=== PATIENT | female | born 1985 | race Two or more races ===

== ENCOUNTER 2016-06-07 12:47 | Emergency (ER) | payer OTHER ==
[2016-06-07 13:07] VITALS: TEMP 98.3; BMI 30.9
--- NOTE | 2016-06-07 13:27 | PDOC ---
History of Present Illness - General History Source: Patient Exam Limitations: No Limitations - History of Present Illness Initial Comments: 06/07/16 14:05 The patient is a 30 year old female, with no significant past medical history, who presents to the emergency department complaining of epigastric pain for approximately 4 days. The patient reports associated nausea, diarrhea, and chills. She states she her appetite is normal, but has not been eating much, because she is worried about her abdominal pain. The patient reports the pain is exacerbated when eating. She reports her pain is intermittent. She reports some occasional right flank pain. The patient denies any dysuria, hematuria, frequency, or urgency. The patient denies any vomiting or constipation. The patient denies any fever, cough, headache, or dizziness. The patient denies any recent travel or sick contacts. Allergies: Lactose. NKDA Past Surgical History: None reported. Social History: Non-smoker. Denies alcohol or drug use. PCP: Dr. Blair <Alexandro Vera - Last Filed: 06/07/16 14:05> <Anita Almodovar - Last Filed: 06/08/16 08:52> - General Chief Complaint: Pain, Acute Stated Complaint: ABD PAIN, DIARRHEA, CHILLS Time Seen by Provider: 06/07/16 13:26 Past History <Alexandro Vera - Last Filed: 06/07/16 14:05> - Past Medical History Asthma: Yes - Psycho/Social/Smoking Cessation Hx Anxiety: No Suicidal Ideation: No Smoking History: Never smoked Have you smoked in the past 12 months: No Information on smoking cessation initiated: No Hx Alcohol Use: No Drug/Substance Use Hx: No Substance Use Type: None <Anita Almodovar - Last Filed: 06/08/16 08:52> - Past Medical History Allergies/Adverse Reactions: Allergies Allergy/AdvReac Type Severity Reaction Status Date / Time No Known Allergies Allergy Verified 06/07/16 13:04 Home Medications: Ambulatory Orders Pantoprazole Sodium [Protonix] 40 mg PO DAILY #30 tablet. 06/07/16 Ranitidine HCl [Zantac] 150 mg PO BID PRN #20 tablet 06/07/16 Review of Systems - Review of Systems Able to Perform ROS?: Yes Comments:: 06/07/16 14:05 GENERAL/CONSTITUTIONAL: +Chills. No fever. No weakness. HEAD, EYES, EARS, NOSE AND THROAT: No change in vision. No ear pain or discharge. No sore throat. CARDIOVASCULAR: No chest pain or shortness of breath. RESPIRATORY: No cough, wheezing, or hemoptysis. GASTROINTESTINAL: +Epigastric pain, +nausea, +diarrhea. No vomiting or constipation. GENITOURINARY: No dysuria, frequency, or change in urination. MUSCULOSKELETAL: No joint or muscle swelling or pain. No neck or back pain. SKIN: No rash NEUROLOGIC: No headache, vertigo, loss of consciousness, or change in strength/ sensation. ENDOCRINE: No increased thirst. No abnormal weight change. HEMATOLOGIC/LYMPHATIC: No anemia, easy bleeding, or history of blood clots. ALLERGIC/IMMUNOLOGIC: No hives or skin allergy. <Alexandro Vera - Last Filed: 06/07/16 14:05> *Physical Exam - Vital Signs Last Vital Signs Temp Pulse Resp BP Pulse Ox 98.3 F 64 18 116/75 100 06/07/16 13:04 06/07/16 13:04 06/07/16 13:04 06/07/16 13:04 06/07/16 13:04 - Physical Exam Comments: 06/07/16 14:06 GENERAL: Awake, alert, and fully oriented, in no acute distress HEAD: No signs of trauma EYES: PERRLA, EOMI, sclera anicteric, conjunctiva clear ENT: Auricles normal inspection, hearing grossly normal, nares patent, oropharynx clear without exudates. Dry mucosa NECK: Normal ROM, supple, no lymphadenopathy, JVD, or masses LUNGS: Breath sounds equal, clear to auscultation bilaterally. No wheezes, and no crackles HEART: Regular rate and rhythm, normal S1 and S2, no murmurs, rubs or gallops ABDOMEN: Tenderness to palpation to the epigastric region. Soft, normoactive bowel sounds. No guarding, no rebound. No masses EXTREMITIES: Normal range of motion, no edema. No clubbing or cyanosis. No cords, erythema, or tenderness NEUROLOGICAL: Cranial nerves II through XII grossly intact. Normal speech, normal gait SKIN: Warm, Dry, normal turgor, no rashes or lesions noted. <Alexandro Vera - Last Filed: 06/07/16 14:05> - Vital Signs Last Vital Signs Temp Pulse Resp BP Pulse Ox 98.3 F 64 18 116/75 100 06/07/16 13:04 06/07/16 13:04 06/07/16 13:04 06/07/16 13:04 06/07/16 13:04 <Anita Almodovar - Last Filed: 06/08/16 08:52> ED Treatment Course - LABORATORY CBC & Chemistry Diagram: 06/07/16 13:45 06/07/16 13:45 <Alexandro Vera - Last Filed: 06/07/16 14:05> - LABORATORY CBC & Chemistry Diagram: 06/07/16 13:45 06/07/16 13:45 <Anita Almodovar - Last Filed: 06/08/16 08:52> Medical Decision Making - Medical Decision Making 06/07/16 16:[address] Hudson. Awaiting CT a/p for further evaluation of abd pain, diarrhea, poor PO intake. If negative, will recommend outpatient GI f/u. <Anita Almodovar - Last Filed: 06/08/16 08:52> *DC/Admit/Observation/Transfer - Attestations Scribe Attestion: 06/07/16 14:07 Documentation prepared by Alexandro Vera, acting as medical manager for Anita Almodovar MD. <Alexandro Vera - Last Filed: 06/07/16 14:05> <Anita Almodovar - Last Filed: 06/08/16 08:52> Diagnosis at time of Disposition: Gastritis Qualifiers: Gastritis type: unspecified gastritis Chronicity: acute Gastritis bleeding: without bleeding Qualified Code(s): K29.00 - Acute gastritis without bleeding - Discharge Dispostion Disposition: HOME Condition at time of disposition: Stable - Prescriptions Prescriptions: Pantoprazole Sodium [Protonix] 40 mg PO DAILY #30 tablet. Ranitidine HCl [Zantac] 150 mg PO BID PRN #20 tablet PRN Reason: Abdominal Pain - Referrals Referrals: Kash Worrell DO [Staff Physician] - Cyndie Mccullough MD [Primary Care Provider] - - Patient Instructions Printed Discharge Instructions: [place] Diet, DI for Gastritis Additional Instructions: Your CT scan of the abdomen and pelvis reviewed. No acute findings. It may be possible that this may be gastritis. Please try a bland diet. Take 40 mg protonix daily. For additional relief, take 150 mg zantac every 12 hours as needed. Follow up with a GI doctor. Call to schedule an appointment. - Post Discharge Activity Work/School Note: Back to Work
[2016-06-07] MEDS ORDERED: SODIUM CHLORIDE 1,000 ML IV STA (13:58)
[2016-06-07 14:02] LABS: BASOPHIL 0.5 % (0-2.0); EOSINOPHIL 2.4 % (0-4.5); MCH 27.3 pg (25.7-33.7); MCHC 32.6 g/dl (32.0-36.0); MEAN CELL VOLUME 83.7 fl (80-96); NEUTROPHILS 53.8 % (42.8-82.8); PLATELET COUNT 229 K/MM3 (134-434); RDW 14.4 % (11.6-15.6); WHITE BLOOD COUNT 6.7 K/mm3 (4.0-10.0)
[2016-06-07 14:29] LABS: ALBUMIN 3.9 g/dl (3.4-5.0); ANION GAP 6 (8-16); CALCIUM 8.7 mg/dL (8.5-10.1); CO2 28 mmol/L (21-32); GLUCOSE,RANDOM 87 mg/dL (74-106)
[2016-06-07 14:32] LABS: ALK PHOS 65 U/L (45-117); BILIRUBIN,TOTAL 0.7 mg/dL (0.2-1.0); CREATININE 0.8 mg/dL (0.55-1.02); SGOT/AST 15 U/L (15-37); SGPT/ALT 20 U/L (12-78); TOT PROT 7.2 g/dl (6.4-8.2)
[2016-06-07] MEDS ORDERED: PANTOPRAZOLE 40 MG TABLET (FP) PO ONE (17:30)
[2016-06-07] MEDS ORDERED: RANITIDINE HCL 150 MG TABLET (FP) PO ONE (17:30)
--- NOTE | 2016-06-07 17:35 | PDOC ---
*Physical Exam - Vital Signs Last Vital Signs Temp Pulse Resp BP Pulse Ox 98.3 F 64 18 116/75 100 06/07/16 13:04 06/07/16 13:04 06/07/16 13:04 06/07/16 13:04 06/07/16 13:04 ED Treatment Course - LABORATORY CBC & Chemistry Diagram: 06/07/16 13:45 06/07/16 13:45 - ADDITIONAL ORDERS Additional order review: Laboratory Results 06/07/16 06/07/16 13:45 13:45 Sodium 141 Potassium 4.2 Chloride 107 Carbon Dioxide 28 Anion Gap 6 L BUN 11 Creatinine 0.8 Creat Clearance w eGFR > 60 Random Glucose 87 Calcium 8.7 Total Bilirubin 0.7 AST 15 ALT 20 Alkaline Phosphatase 65 Total Protein 7.2 Albumin 3.9 Lipase 193 Serum , Qual Negative 06/07/16 13:45 RBC 4.66 MCV 83.7 MCHC 32.6 RDW 14.4 MPV 8.0 Neutrophils % 53.8 Lymphocytes % 32.3 Monocytes % 11.0 H Eosinophils % 2.4 Basophils % 0.5 - Medications Given in the ED: ED Medications Discontinued Medications Generic Name Dose Route Start Last Admin Trade Name Freq PRN Reason Stop Dose Admin Sodium Chloride 1,000 mls @ 1,000 mls/hr 06/07/16 13:58 06/07/16 14:12 Normal Saline - IV 06/07/16 14:57 1,000 mls/hr ASDIR STA Administration Medical Decision Making - Medical Decision Making 06/07/16 17:31 Sign-out received from outgoing Emergency Physician Dr. Almodovar Pt interviewed and examined Ancillary studies reviewed Case discussed in detail with oncoming Emergency Physician including history, physical exam and ancillary studies. Vital Signs Temp Pulse Resp BP Pulse Ox 98.3 F 64 18 116/75 100 06/07/16 13:04 06/07/16 13:04 06/07/16 13:04 06/07/16 13:04 06/07/16 13:04 CBC, BMP 06/07/16 13:45 06/07/16 13:45 CMP Sodium 141 mmol/L (136-145) 06/07/16 13:45 Potassium 4.2 mmol/L (3.5-5.1) 06/07/16 13:45 Chloride 107 mmol/L (98-107) 06/07/16 13:45 Carbon Dioxide 28 mmol/L (21-32) 06/07/16 13:45 Anion Gap 6 (8-16) L 06/07/16 13:45 BUN 11 mg/dL (7-18) 06/07/16 13:45 Creatinine 0.8 mg/dL (0.55-1.02) 06/07/16 13:45 Creat Clearance w eGFR > 60 (>60) 06/07/16 13:45 Random Glucose 87 mg/dL (74-106) 06/07/16 13:45 Calcium 8.7 mg/dL (8.5-10.1) 06/07/16 13:45 Total Bilirubin 0.7 mg/dL (0.2-1.0) 06/07/16 13:45 AST 15 U/L (15-37) 06/07/16 13:45 ALT 20 U/L (12-78) 06/07/16 13:45 Alkaline Phosphatase 65 U/L (45-117) 06/07/16 13:45 Total Protein 7.2 g/dl (6.4-8.2) 06/07/16 13:45 Albumin 3.9 g/dl (3.4-5.0) 06/07/16 13:45 Lipase 193 U/L (73-393) 06/07/16 13:45 Serum , Qual Negative 06/07/16 13:45 CT scan reviewed. No acute findings. Patient describes to me of this twisting epigastric pain after eating. It sounds like gastritis or potentially gastric ulcer. We will prescribe her tonics and Zantac and have the patient follow up with gastrology. I'll treat as gastritis at this time. I discussed the physical exam findings, ancillary test results and final diagnoses with the patient. I answered all of the patient's questions. The patient was satisfied with the care received and felt comfortable with the discharge plan and treatment plan. The patient will call their primary care physician within 24 hours to arrange follow-up and will return to the Emergency Department with any new, persistant or worsening symptoms. *DC/Admit/Observation/Transfer Diagnosis at time of Disposition: Gastritis Qualifiers: Gastritis type: unspecified gastritis Chronicity: acute Gastritis bleeding: without bleeding Qualified Code(s): K29.00 - Acute gastritis without bleeding - Discharge Dispostion Disposition: HOME Condition at time of disposition: Stable Admit: No - Prescriptions Prescriptions: Pantoprazole Sodium [Protonix] 40 mg PO DAILY #30 tablet. Ranitidine HCl [Zantac] 150 mg PO BID PRN #20 tablet PRN Reason: Abdominal Pain - Referrals Referrals: Cyndie Mccullough MD [Primary Care Provider] - Kash Worrell DO [Staff Physician] - - Patient Instructions Printed Discharge Instructions: DI for Gastritis, [place] Diet Additional Instructions: Your CT scan of the abdomen and pelvis reviewed. No acute findings. It may be possible that this may be gastritis. Please try a bland diet. Take 40 mg protonix daily. For additional relief, take 150 mg zantac every 12 hours as needed. Follow up with a GI doctor. Call to schedule an appointment. - Post Discharge Activity
[2016-06-07] MEDS ORDERED: RANITIDINE HCL 150 MG TABLET (FP) ONE (17:50)
[2016-06-07] MEDS ORDERED: PANTOPRAZOLE 40 MG TABLET (FP) ONE (17:50)
[2016-06-07 17:57] VITALS: BP 121/74; PULSE 74
== END 2016-06-07 17:56 | disposition home or self-care (01) ==
LOC: JER 12:47
PROC: 3E0337Z Introduction of Electrolytic and Water Balance Substance into Peripheral Vein, Percutaneous Approach (ICD-10-PCS; principal; 2016-06-07)
DX: K29.00 Acute gastritis without bleeding (principal)
CPT/HCPCS: 36415; 74177-TC; 80053; 83690; 84703; 85025; 96360; 99283-25

== ENCOUNTER 2016-10-02 11:17 | Inpatient (IN) | payer OTHER ==
[2016-10-02] MEDS ORDERED: METOCLOPRAMIDE HCL INJECTION 10 MG/2 ML VIAL IVPB ONE (12:15)
[2016-10-02 12:22] LABS: BASOPHIL 0.7 % (0-2.0); EOSINOPHIL 2.2 % (0-4.5); MCH 27.2 pg (25.7-33.7); MCHC 32.6 g/dl (32.0-36.0); MEAN CELL VOLUME 83.5 fl (80-96); MEAN PLT VOLUME 8.7 fl (7.5-11.1); NEUTROPHILS 56.3 % (42.8-82.8); PLATELET COUNT 235 K/MM3 (134-434); RDW 14.4 % (11.6-15.6); WHITE BLOOD COUNT 7.1 K/mm3 (4.0-10.0)
--- NOTE | 2016-10-02 12:30 | PDOC ---
History of Present Illness - General Chief Complaint: Diarrhea Stated Complaint: DEHYDRATED Time Seen by Provider: 10/02/16 11:48 History Source: Patient - History of Present Illness Timing/Duration: reports: getting worse Abdominal Pain Onset Location: reports: epigastric Past History - Past Medical History Allergies/Adverse Reactions: Allergies Allergy/AdvReac Type Severity Reaction Status Date / Time No Known Allergies Allergy Verified 10/02/16 11:26 Home Medications: Ambulatory Orders NK [No Known Home Medication] 10/02/16 Asthma: Yes - Psycho/Social/Smoking Cessation Hx Anxiety: No Suicidal Ideation: No Smoking History: Never smoked Have you smoked in the past 12 months: No Hx Alcohol Use: No Drug/Substance Use Hx: No Substance Use Type: None Review of Systems - Review of Systems Constitutional: Yes: Malaise, Weakness. No: Chills, Fever ABD/GI: Yes: Diarrhea, Nausea, Vomiting, Abdominal cramping : No: Dysuria Neurological: Yes: Weakness, Dizziness *Physical Exam - Vital Signs Last Vital Signs Temp Pulse Resp BP Pulse Ox 98.0 F 64 20 119/71 99 10/02/16 11:23 10/02/16 11:23 10/02/16 11:23 10/02/16 11:23 10/02/16 11:23 - Physical Exam Comments: 10/02/16 12:29 appears lethargic General Appearance: Yes: Appropriately Dressed HEENT: positive: Normal Voice Neck: positive: Supple Respiratory/Chest: negative: Respiratory Distress Gastrointestinal/Abdominal: positive: Normal Bowel Sounds, Soft. negative: Tender, Distended, Guarding, Rebound Neurologic: positive: Normal Mood/Affect. negative: Fully Oriented ED Treatment Course - LABORATORY CBC & Chemistry Diagram: 10/02/16 12:11 10/02/16 13:00 Medical Decision Making - Medical Decision Making 10/02/16 12:26 31-year-old female, no significant history here with nausea, vomiting and diarrhea. Patient states approximately 2 weeks ago she developed epigastric pain mostly after eating. At some point developed nausea, no vomiting and states she's had multiple episodes of non-bloody watery diarrhea daily. Denies any fever or chills. Yesterday developed dizziness and headache with profound weakness. Reports that multiple family members at home had similar symptoms and have since improved. No recent travel, antibiotic use or unusual food See exam N/V/D x 2 weeks w/ profound weakness now +sick contacts Appears lethargic in ED but stable Abd benign Possibly viral -IVF -reglan -labs -stool studies at this point given duration of sxs -reasess 10/02/16 12:29 10/02/16 13:50 Lab called, K 1.9, Glu 44, calcium too low to run, will rpt. Pt remains stable. Amp D50, IV KCL and ekg in progress. 10/02/16 15:26 10/02/16 15:27 Sinus torin to 46 on EKG. Will contact hospitalist and admit at this time 10/02/16 17:46 Pt admitted to non-cardiac tele w/ rpt labs pending s/p meds. Pt appears sig better at this time *DC/Admit/Observation/Transfer Diagnosis at time of Disposition: Vomiting and diarrhea - Discharge Dispostion Condition at time of disposition: Fair Admit: Yes
[2016-10-02] MEDS ORDERED: METOCLOPRAMIDE HCL INJECTION 10 MG/2 ML VIAL ONE (12:31)
[2016-10-02 13:47] LABS: ALBUMIN 1.7 g/dl (3.4-5.0); ALK PHOS 32 U/L (45-117); ANION GAP 10 (8-16); BILIRUBIN,TOTAL 0.2 mg/dL (0.2-1.0); CO2 13 mmol/L (21-32); CREATININE 0.2 mg/dL (0.55-1.02); SGOT/AST 12 U/L (15-37); SGPT/ALT 16 U/L (12-78)
[2016-10-02 13:49] LABS: GLUCOSE,RANDOM 44 mg/dL (74-106)
[2016-10-02] MEDS ORDERED: DEXTROSE 50%-WATER - 25 GM/50 ML VIAL IVPUSH ONE (13:50)
[2016-10-02] MEDS ORDERED: KCL 10 MEQ IVPB 100 ML IVPB SCH (14:00)
[2016-10-02] MEDS ORDERED: DEXTROSE 50%-WATER 50 ML DISP.SYRIN ONE (14:24)
[2016-10-02] MEDS ORDERED: KCL 10 MEQ IVPB 200 ML IVPB ONE (14:24)
[2016-10-02] MEDS ORDERED: DEXTROSE 5%-0.45% SALINE 1,000 ML IV SCH ×2 (14:45→20:00)
[2016-10-02] MEDS ORDERED: CALCIUM GLUCONATE 10% - 1,000 MG/10 ML VIAL IVPUSH STA (15:44)
[2016-10-02] MEDS: KCL 10 MEQ IVPB 100 ML IVPB SCH ×3 (16:07→20:32)
[2016-10-02] MEDS ORDERED: MAGNESIUM SULF 50% (8.12 MEQ/2 ML-1 GM VIAL) IVPB ONE (16:17)
[2016-10-02] MEDS ORDERED: MAGNESIUM SULF 50% (8.12 MEQ/2 ML-1 GM VIAL) ONE (16:19)
[2016-10-02] MEDS ORDERED: CALCIUM GLUCONATE 10% - 1,000 MG/10 ML VIAL ONE (16:19)
[2016-10-02] MEDS ORDERED: ACETAMINOPHEN 325 MG TABLET (FP) PO PRN (16:23)
[2016-10-02] MEDS ORDERED: ONDANSETRON *ODT* 4 MG TABLET SL PRN (16:25)
--- NOTE | 2016-10-02 17:02 | PN ---
Teaching Attending Note Name of Resident: Teddy Lewis ATTENDING PHYSICIAN STATEMENT I saw and evaluated the patient. I reviewed the resident's note and discussed the case with the resident. I agree with the resident's findings and plan as documented. SUBJECTIVE:31yo F with no PMH presented to the ER c/o N/V/D [id number]. started suddenly assoc with epigastric pain. other family members had the same symptoms but those resolved after 5 days. her vomiting has resolved but continues to feel nausea with intermittent epigastric non-radiating pain and diarrhea. (7x/ day light brown stools). no similar episodes in the past. denies use of diuretics, laxatives, weight loss supplements, illicit drugs, psychiatric drugs. no recent travel. denies seizure, muscle spasm, lethargy, weight gain, hair loss, polyuria or red urine. +subjective weight loss OBJECTIVE: Last Vital Signs Temp Pulse Resp BP Pulse Ox 97.7 F 55 L 18 101/60 100 10/02/16 14:30 10/02/16 14:30 10/02/16 14:30 10/02/16 14:30 10/02/16 14:30 General NAD CV S1 S2 RRR no murmur/rub/gallop Lungs CTA B/L no wheezing/rales/rhonchi Abdomen soft NT/ND no rebound or guarding. negative rowe sign. normoactive BS Extremities no pedal edema ASSESSMENT AND PLAN: 31yo F with no PMH presented to the ER with intractable diarrhea 1. Severe hypokalemia-Tele admission for continuous cardiac monitoring. check TSH, urinary potassium. receiving KCl 10meq on 2nd run. will give additional 2 bags and Mg 2g despite level not known at this time. check labs after completed 4 bags. EKG QTc 406 2. Severe hypocalcemia- unreadable on admitting labs. will give calcium gluconate x1. requested RN to set up 2nd IV site to run calcium infusion. will wait for repeat labs. then run calcium gluconate 11g at 50mL/H if Ca <7.5 3. Hypoglcyemia- due to GI losses. s/p D50. repeat sugar. 4. Gastroenteritis-pt states she never had symptoms in the past but was here in 06/2016 with same complaints. electrolytes were normal at that time. CT at that time was negative for pathology. likely viral vs induced? (laxative/diuretic abuse as pt has such electrolyte disturbances). CT abdomen at that time was negative for pathology. check cdiff and stool studies. if cdiff negative can give loperamide. advance diet as tolerated 5. HYpernatremia- likely dehydration. IVF 6. DVT ppx- EAM
--- NOTE | 2016-10-02 17:29 | HP ---
CHIEF COMPLAINT: I have diarrhea and vomiting PCP: Dr. Blair HISTORY OF PRESENT ILLNESS: 31 yo F with h/o lactose intolerance and suspected gastritis presented to the ED worsening nausea, vomiting and diarrhea for 2 weeks. Patient accounts that these symptoms came on 2 weeks ago without any triggering events that she can think of. On 06/07, she was seen in [facility] ED for similar symptoms and was discharged home in light of negative abd CT. What's different between then and now is the acuity, severity and duration. She's now having on average 2 episodes of vomiting with clear fluid or gastric content and 6 times of water diarrhea. Patient suspects it's somehow related to stomach pain whenever she eats. The pain is epigastric, stabbing like, 10/10, non-radiating, triggered by eating. Patient also stated that she used to have days of constipation followed by days of diarrhea. She never had endoscopy or endoscopy. Denies travel, sick contact, genetic disorder, change in diet, mood or psychiatric disorder, new medication, fever, chills, chest pain, shortness of breath on exertion, or urinary symptom. ER course was notable for: (1) Na+ 152, K+ 1.9 Glu 44 (2) Received 3 runs of IV KCl, D50, Mg2+, Reglan, Ca gluconate (3) Clinically stable Recent Travel: Denies PAST MEDICAL HISTORY: Asthma, lactose intolerant, gastritis (not officially diagnosed) PAST SURGICAL HISTORY: in 2008, 2009, 2011 Social History: Smoking: Denies Alcohol: Denies Drugs: Smokes marijuana every night Family History: Adopted. Biological father has gastric ulcer and ?kidney problem, mother health status unknown Allergies No Known Allergies Allergy (Verified 10/02/16 11:26) HOME MEDICATIONS: Home Medications Medication Instructions Recorded NK [No Known Home Medication] 10/02/16 REVIEW OF SYSTEMS CONSTITUTIONAL: generalized weakness, Absent: fever, chills, diaphoresis, malaise, loss of appetite, weight change HEENT: Absent: rhinorrhea, nasal congestion, throat pain, throat swelling, difficulty swallowing, mouth swelling, ear pain, eye pain, visual changes CARDIOVASCULAR: lightheadedness Absent: chest pain, syncope, palpitations, irregular heart rate, , peripheral edema RESPIRATORY: Absent: cough, shortness of breath, dyspnea with exertion, orthopnea, wheezing, stridor, hemoptysis GASTROINTESTINAL:nausea, vomiting, diarrhea Absent: abdominal pain, abdominal distension, constipation, melena, hematochezia GENITOURINARY: Absent: dysuria, frequency, urgency, hesitancy, hematuria, flank pain, genital pain MUSCULOSKELETAL: Absent: myalgia, arthralgia, joint swelling, back pain, neck pain SKIN: Absent: rash, itching, pallor HEMATOLOGIC/IMMUNOLOGIC: Absent: easy bleeding, easy bruising, lymphadenopathy, frequent infections ENDOCRINE: Absent: unexplained weight gain, unexplained weight loss, heat intolerance, cold intolerance NEUROLOGIC: Absent: headache, focal weakness or paresthesias, dizziness, unsteady gait, seizure, mental status changes, bladder or bowel incontinence PSYCHIATRIC: Absent: anxiety, depression, suicidal or homicidal ideation, hallucinations. PHYSICAL EXAMINATION Last Vital Signs Temp Pulse Resp BP Pulse Ox 97.7 F 55 L 18 101/60 100 10/02/16 14:30 10/02/16 14:30 10/02/16 14:30 10/02/16 14:30 10/02/16 14:30 GENERAL: AAO x 3, in no acute distress. HEAD: Normal with no signs of trauma. EYES: Pupils equal, round and reactive to light, extraocular movements intact, sclera anicteric, conjunctiva clear . EARS, NOSE, THROAT: oropharynx clear without exudates. Moist mucous membranes. LUNGS: CTAB HEART: RRR, normal S1 and S2 without murmur, rub or gallop. ABDOMEN: Soft, nontender, not distended, normoactive bowel sounds, no guarding, no rebound, no masses. EXTREMITIES: 2+ pulses, warm, No calf tenderness. No peripheral edema. NEUROLOGICAL: Cranial nerves II-XII intact. Normal speech. Normal gait. PSYCHIATRIC: Cooperative. Good eye contact. Appropriate mood and affect. SKIN: Warm, dry, normal turgor, no rashes or lesions noted, normal capillary refill. CBCD WBC 7.1 K/mm3 (4.0-10.0) 10/02/16 12:11 RBC 4.84 M/mm3 (3.60-5.2) 10/02/16 12:11 Hgb 13.2 GM/dL (10.7-15.3) 10/02/16 12:11 Hct 40.4 % (32.4-45.2) 10/02/16 12:11 MCV 83.5 fl (80-96) 10/02/16 12:11 MCHC 32.6 g/dl (32.0-36.0) 10/02/16 12:11 RDW 14.4 % (11.6-15.6) 10/02/16 12:11 Plt Count 235 K/MM3 (134-434) 10/02/16 12:11 MPV 8.7 fl (7.5-11.1) 10/02/16 12:11 CMP Sodium 152 mmol/L (136-145) H 10/02/16 13:00 Potassium 1.9 mmol/L (3.5-5.1) L* D 10/02/16 13:00 Chloride 129 mmol/L (98-107) H D 10/02/16 13:00 Carbon Dioxide 13 mmol/L (21-32) L D 10/02/16 13:00 Anion Gap 10 (8-16) 10/02/16 13:00 BUN 7 mg/dL (7-18) D 10/02/16 13:00 Creatinine 0.2 mg/dL (0.55-1.02) L D 10/02/16 13:00 Creat Clearance w eGFR > 60 (>60) 10/02/16 13:00 Calcium Y 10/02/16 13:00 Total Bilirubin 0.2 mg/dL (0.2-1.0) D 10/02/16 13:00 AST 12 U/L (15-37) L 10/02/16 13:00 ALT 16 U/L (12-78) 10/02/16 13:00 Alkaline Phosphatase 32 U/L (45-117) L D 10/02/16 13:00 Total Protein 3.0 g/dl (6.4-8.2) L D 10/02/16 13:00 Albumin 1.7 g/dl (3.4-5.0) L D 10/02/16 13:00 IMAGING EKG on 10/02: peak T waves, prolonged QT (my read) CT abd on 06/07: No acute finding ASSESSMENT/PLAN: 31 yo F with h/o lactose intolerance and suspected gastritis presented to the ED worsening nausea, vomiting and diarrhea for 2 weeks. She's admitted to observation for electrolyte derangement. Intractable nausea, vomiting and diarrhea - Cont. D5W + 1/2NS - Reglan PRN for n/v - f/u c. diff ag - Liquid diet Hypocalcemia - Unknown etiology - Negative trousseau and chevostek signs - f/u PTH, phosphate, Mg2+ level - Received Ca gluconate and MgSO4 - Seizure precaution and neuro checks Gastritis - On protonix - H. pylori and EGD as outpatient Hypovolemic Hypernatremia - 2/2 diarrhea - Cont. D5W + 1/2NS Hypokalemia - With non-anion gap metabolic acidosis - 2/2 diarrhea - IV KCl x 3 bags + PO KCl - Recheck level Hypoglycemia - Likely 2/2 poor PO intake - Advance diet as tolerated FEN - Cont. IVF - Monitor electrolytes - Liquid diet Prophylaxis - DVT: SCDs - GI: protonix Dispo - Cont. to observe on med-surg Visit type - Emergency Visit Emergency Visit: Yes ED Registration Date: 10/02/16 Care time: The patient presented to the Emergency Department on the above date and was hospitalized for further evaluation of their emergent condition. - New Patient This patient is new to me today: Yes Date on this admission: 10/02/16 - Critical Care Critical Care patient: No
[2016-10-02] MEDS ORDERED: METOCLOPRAMIDE HCL INJECTION 10 MG/2 ML VIAL IVPB PRN (18:00)
[2016-10-02] MEDS ORDERED: POTASSIUM CHLORIDE TABS 20 MEQ TABLET.ER (FP) PO ONE (18:03)
[2016-10-02] MEDS ORDERED: KCL 10 MEQ IVPB 100 ML IVPB ONE ×2 (18:07→20:30)
[2016-10-02 18:48] LABS: URINE APPEARANCE CLEAR; URINE BILIRUBIN NEGATIVE (NEGATIVE); URINE COLOR LTYELLOW; URINE GLUCOSE (UA) 2+ (NEGATIVE); URINE KETONE 1+ (NEGATIVE); URINE LEUK ESTERASE NEGATIVE (NEGATIVE); URINE NITRITE NEGATIVE (NEGATIVE); URINE PROTEIN NEGATIVE (NEGATIVE); URINE UROBILINOGEN NEGATIVE E.U./dl (0.2-1.0)
[2016-10-02 19:09] LABS: URINE BLOOD 2+ (NEGATIVE)
[2016-10-02 20:01] LABS: URINE BACTERIA RARE /hpf (NONE SEEN); URINE MUCUS FEW; URINE RBC <1 /hpf (0-3); URINE WBC 2 /hpf (3-5)
[2016-10-02] MEDS ORDERED: SODIUM CHLORIDE 0.45% 1,000 ML IV SCH (20:15)
[2016-10-02 20:16] VITALS: BMI 29.7
[2016-10-02 23:05] LABS: ALBUMIN 3.3 g/dl (3.4-5.0); ALK PHOS 64 U/L (45-117); ANION GAP 8 (8-16); BILIRUBIN,TOTAL 0.4 mg/dL (0.2-1.0); CALCIUM 8.1 mg/dL (8.5-10.1); CO2 23 mmol/L (21-32); CREATININE 0.6 mg/dL (0.55-1.02); GLUCOSE,RANDOM 81 mg/dL (74-106); SGOT/AST 22 U/L (15-37); SGPT/ALT 29 U/L (12-78); TOT PROT 6.3 g/dl (6.4-8.2)
[2016-10-03 02:28] LABS: URINE MARIJUANA THC NEGATIVE ng/ml (CUTOFF=50)
[2016-10-03] MEDS ORDERED: SODIUM CHLORIDE 1,000 ML IV SCH (05:00)
[2016-10-03 05:41] VITALS: TEMP 97.8
[2016-10-03 07:11] LABS: THYROID STIMULATING HORMONE 1.19 uIU/ml (0.358-3.74)
[2016-10-03 09:16] LABS: ALBUMIN 3.2 g/dl (3.4-5.0); ANION GAP 9 (8-16); CO2 21 mmol/L (21-32); CREATININE 0.7 mg/dL (0.55-1.02); GLUCOSE,RANDOM 82 mg/dL (74-106); MAGNESIUM 1.9 mg/dL (1.8-2.4); PHOSPHOROUS 2.6 mg/dL (2.5-4.9); SGOT/AST 23 U/L (15-37); SGPT/ALT 28 U/L (12-78)
[2016-10-03 09:17] LABS: ALK PHOS 63 U/L (45-117); BILIRUBIN,TOTAL 0.5 mg/dL (0.2-1.0)
[2016-10-03] MEDS ORDERED: PANTOPRAZOLE 40 MG TABLET (FP) PO SCH (10:00)
[2016-10-03 10:32] VITALS: BP 107/65; PULSE 66
--- NOTE | 2016-10-03 11:11 | EKG ---
Test Reason : Blood Pressure : / mmHG Vent. Rate : 046 BPM Atrial Rate : 046 BPM P-R Int : 156 ms QRS Dur : 094 ms QT Int : 464 ms P-R-T Axes : 000 062 046 degrees QTc Int : 406 ms SINUS BRADYCARDIA WITH SINUS ARRHYTHMIA OTHERWISE NORMAL ECG NO PREVIOUS ECGS AVAILABLE Confirmed by MARINO ZULUAGA MD ([id number]) on 10/03/2016 11:11:03 AM Referred By: Confirmed By:MARINO ZULUAGA MD
--- NOTE | 2016-10-03 14:56 | PN ---
Teaching Attending Note Name of Resident: Teddy Lewis ATTENDING PHYSICIAN STATEMENT I saw and evaluated the patient. I reviewed the resident's note and discussed the case with the resident. I agree with the resident's findings and plan as documented. SUBJECTIVE:abdominal pain has resolved. had 2 loose BM since yesterday. tolerating regular diet. denies CP, SOB,fever, chills, N/V/C OBJECTIVE: Last Vital Signs Temp Pulse Resp BP Pulse Ox 97.8 F 66 18 107/65 100 10/03/16 10:10/03/16 10:00 10/03/16 10:00 10/03/16 10:10/03/16 10:00 General NAD Abdomen soft NT/ND no rebound or guarding. negative rowe sign. normoactive BS ASSESSMENT AND PLAN: 31yo F with no PMH presented to the ER with intractable diarrhea 1. Severe hypokalemia-received Kcl 10meq x4. repeat lab is normalized. likely initial labs was lab error. 2. Severe hypocalcemia- initial reading likely lab error. WNL. 3. Hypoglcyemia- resolved. 4. Gastroenteritis- resolved. tolerating regular diet. cdiff negative. diarrhea resolved. CT on last admission was normal. instructed to f/u with GI if symptoms re-occur. 5. HYpernatremia- resolved 6. DVT ppx- EAM 7. d/c home
--- NOTE | 2016-10-03 16:10 | DS ---
Physical Exam: SUBJECTIVE: Patient had an uneventful night. No more n/v. Had 3 diarrhea since admission. Tolerating food. No fever, chills, chest pain, sob, abd pain, urinary symptom. OBJECTIVE: Vital Signs Period Temp Pulse Resp BP Sys/Haynes Pulse Ox Last 24 Hr 97.8 F-98.5 F 44-66 16-18 92-111/58-78 100-100 PHYSICAL EXAM GENERAL: AAO x 3, in no acute distress. HEAD: Normal with no signs of trauma. EYES: Pupils equal, round and reactive to light, extraocular movements intact, sclera anicteric, conjunctiva clear . EARS, NOSE, THROAT: oropharynx clear without exudates. LUNGS: CTAB HEART: RRR, normal S1 and S2 without murmur, rub or gallop. ABDOMEN: Soft, nontender, not distended, normoactive bowel sounds, no guarding, no rebound, no masses. EXTREMITIES: 2+ pulses, warm, No calf tenderness. No peripheral edema. NEUROLOGICAL: Cranial nerves II-XII intact. Normal speech. Normal gait. PSYCHIATRIC: Cooperative. Good eye contact. Appropriate mood and affect. SKIN: Warm, dry, normal turgor, no rashes or lesions noted, normal capillary refill. LABS Laboratory Results - last 24 hr 10/02/16 10/02/16 10/02/16 18:09 21:20 22:00 Sodium Potassium Chloride Carbon Dioxide Anion Gap BUN Creatinine Creat Clearance w eGFR POC Glucometer 99.16435 Random Glucose Calcium Phosphorus Magnesium Total Bilirubin AST ALT Alkaline Phosphatase Total Protein Albumin TSH Stool O & P [place] Cancelled Opiates Screen Negative Methadone Screen Negative Barbiturate Screen Negative Phencyclidine Screen Negative Ur Amphetamines Screen Negative MDMA (Ecstasy) Screen Negative Benzodiazepines Screen Negative Cocaine Screen Negative U Marijuana (THC) Screen Negative O & P Permanent Slide Cancelled 10/02/16 10/02/16 10/02/16 22:10 22:10 22:10 Sodium 143 Potassium 4.1 D Chloride 112 H D Carbon Dioxide 23 D Anion Gap 8 BUN 8 Creatinine 0.6 D Creat Clearance w eGFR > 60 POC Glucometer Random Glucose 81 D Calcium 8.1 L Phosphorus 2.8 Magnesium 2.2 Total Bilirubin 0.4 D AST 22 D ALT 29 D Alkaline Phosphatase 64 D Total Protein 6.3 L D Albumin 3.3 L D TSH Stool O & P Wet [place] Opiates Screen Methadone Screen Barbiturate Screen Phencyclidine Screen Ur Amphetamines Screen MDMA (Ecstasy) Screen Benzodiazepines Screen Cocaine Screen U Marijuana (THC) Screen O & P Permanent Slide 10/03/16 10/03/16 05:15 05:35 Sodium 142 Cancelled Potassium 4.5 Cancelled Chloride 112 H Cancelled Carbon Dioxide 21 Cancelled Anion Gap 9 Cancelled BUN 5 L D Cancelled Creatinine 0.7 Cancelled Creat Clearance w eGFR > 60 Cancelled POC Glucometer Random Glucose 82 Cancelled Calcium 8.0 L Cancelled Phosphorus 2.6 Cancelled Magnesium 1.9 Cancelled Total Bilirubin 0.5 D Cancelled AST 23 Cancelled ALT 28 Cancelled Alkaline Phosphatase 63 Cancelled Total Protein 6.0 L Cancelled Albumin 3.2 L Cancelled TSH 1.19 Stool O & P [place] Opiates Screen Methadone Screen Barbiturate Screen Phencyclidine Screen Ur Amphetamines Screen MDMA (Ecstasy) Screen Benzodiazepines Screen Cocaine Screen U Marijuana (THC) Screen O & P Permanent Slide HOSPITAL COURSE: Date of Admission:10/02/16 31 yo F with h/o lactose intolerance and suspected gastritis presented to the ED worsening nausea, vomiting and diarrhea for 2 weeks. She's admitted for electrolyte derangement. Her intractable nausea, vomiting and diarrhea was improved with fluids and reglan, and her c. diff ag and ab were all negative. All her electrolytes derangement has, including hypocalcemia, hypernatremia, hypokalemia. She's instructed to follow up with her PMD and get a referral to see GI as soon as possible. In the mean time, zofran and protonix were sent to her pharmacy and she can buy simethicone over the counter for diarrhea. Date of Discharge: 10/03/16 Minutes to complete discharge: 35 <Teddy Lewis - Last Filed: 10/03/16 16:03> Physical Exam: All electrolyte disturbances were normalized on repeat labs after receiving minimal repletion, which is highly suspicious for lab error. repeat labs in the AM remained stable. diarrhea resolved and pt tolerated diet. <Soumya Aguilera - Last Filed: 10/04/16 17:50> Discharge Summary Reason For Visit: VOMITING,DIARRHEA,LETHARGY,HYPOGLYCEMI,HYPOKALEMIA Current Active Problems Gastritis (Chronic) - Home Medications Comprehensive Discharge Medication List: Ambulatory Orders Albuterol Sulfate Inhaler - [Ventolin HFA Inhaler -] 2 inh PO Q4H PRN 10/02/16 Miscellaneous Medical Supply [Outpatient Order] 1 each ASDIR #1 [facility] Ondansetron [Zofran -] 8 mg PO BID #14 tablet 10/03/16 Pantoprazole Sodium [Protonix -] 40 mg PO DAILY #14 tablet. 10/03/16 <Teddy Lewis - Last Filed: 10/03/16 16:03> Current Active Problems Gastritis (Chronic) - Home Medications Comprehensive Discharge Medication List: Ambulatory Orders Albuterol Sulfate Inhaler - [Ventolin HFA Inhaler -] 2 inh PO Q4H PRN 10/02/16 Miscellaneous Medical Supply [Outpatient Order] 1 each ASDIR #1 misc Ondansetron [Zofran -] 8 mg PO BID #14 tablet 10/03/16 Pantoprazole Sodium [Protonix -] 40 mg PO DAILY #14 tablet. 10/03/16 <Soumya Aguilera - Last Filed: 10/04/16 17:50> Condition: Fair - Instructions Diet, Activity, Other Instructions: Instruction for continuing care: You were admitted to the hospital due to electrolyte imbalance from severe nausea, vomiting and diarrhea. You were treated with electrolyte supplements and fluids and now you are in stable condition to be discharged. Your symptoms could have caused the electrolyte imbalance but it could also be other underlying GI causes. You must go to see a stomach specialist (GI doctor, info provided in discharge packet) as soon as possible and you will possibly need an endoscopy to look into your stomach to find out how bad your gastritis is and what's causing you to have such severe diarrhea and vomiting. You can take over the counter simethicone for diarrhea. Take protonix 40mg daily and zofran 8mg as needed for nausea and vomiting. They are sent to your pharmacy. Follow up with your primary doctor within a week. Referrals: Cyndie Mccullough MD [Staff Physician] - Disposition: HOME This patient is new to me today: No Emergency Visit: No Critical Care patient: No - Discharge Referral Referred to [facility] No <Teddy Lewis - Last Filed: 10/03/16 16:03>
== END 2016-10-03 14:36 | disposition home or self-care (01) | DRG 241 ==
LOC: JER 11:17 → JERBED 15:42 → INTOOBSV 15:42 → UNDOADMOB 15:42 → JERBED 16:23 → OBSVTOIN 17:28 → J2W 19:24
PROVIDERS: ADMIT Internal Medicine; ATTEND Internal Medicine
DX: K29.70 Gastritis, unspecified, without bleeding (principal); K52.9 Noninfective gastroenteritis and colitis, unspecified; E87.6 Hypokalemia; E83.51 Hypocalcemia; E87.0 Hyperosmolality and hypernatremia; R11.2 Nausea with vomiting, unspecified; E86.1 Hypovolemia; E73.9 Lactose intolerance, unspecified
CPT/HCPCS: 36415; 80053; 80307; 81003; 81015; 83735; 83970; 84100; 84443; 84703; 85025; 87045; 87046; 87177; 87186; 87209; 87324; 87449; 93005; 93010; 99285-25; G0378

== ENCOUNTER 2019-03-06 07:01 | Emergency (ER) | payer OTHER ==
[2019-03-06 07:11] VITALS: TEMP 98.1; BMI 33.1
--- NOTE | 2019-03-06 07:35 | PDOC ---
History of Present Illness - General Chief Complaint: Cold Symptoms Stated Complaint: DRY COUGH, ARM PAIN Time Seen by Provider: 03/06/19 07:24 History Source: Patient Exam Limitations: No Limitations - History of Present Illness Initial Comments: 03/06/19 07:29 HPI 33 YOF with history of asthma, lactose intolerance, GERD presenting with persistent cough x 2 months. she started off initially with URI symptoms (cough/ congestion, malaise), now with persistent dry cough. A/w chest pain/SOB and sore throat with coughing, +generalized malaise and body aches. using her albuterol every 3-4 hours. odd taste in mouth when the cough occurs. pt admits to environmental exposures such as second hand smoke and vaping from her boyfriend. hpt admits to trying zuhair, honey and warm tea. she has been tolerating oral and fluid intake, normal appetite, no weight loss. denies , as s/p tubal ligation. Denies fever, chills, palpitation, dizziness, weakness, N, V, D, abdominal pain , bladder and bowel problems, focal weakness/paresthesias, leg swelling/pain, rash. No sick contacts or travel. No new changes in medications. No suspicious food intake Allergies: None Past Medical History/ PSH: s/p tubal ligation, C section. Social history: Lives with family. No tobacco, ETOH or drug use. Meds: as documented in EMR Family history: noncontributory Review of systems Constitutional: no fevers or chills, +generalized malaise. HEENT: no headache or dizziness. No congestion. No visual/hearing disturbances. no ear pain, eye pain. +sore throat. CVS: no syncope. +chest pain/tightness Resp: +cough, +shortness of breath Gastrointestinal: no abdominal pain, nausea, vomiting, diarrhea. MUSCULOSKELETAL: No joint pain and swelling. No neck or back pain. +myalgias. SKIN: no redness or skin changes, no discharge, no rash. No wounds. Hematologic: no easy bruising/bleeding. NEUROLOGIC: No headache, dizziness, LOC or altered mental status. No weakness, numbness or tingling. Allergic/Immunologic: no allergies All other systems reviewed and negative, or as documented in HPI. Physical exam General: Well appearing, awake and alert, NAD. HEENT: NCAT, PERRL, EOMI, clear conjunctiva, anicteric, moist mucus membranes, oropharynx clear. Airway patent, normal phonation. Uvula midline. no tonsillar hypertrophy. No sinus tenderness, TM clear, no pinna tenderness to manipulation. Neck: neck supple, FROM Resp: CTAB, normal and even respirations, no respiratory distress CVS: RRR, no murmurs, 2+ peripheral pulses throughout, no peripheral edema Abdomen: soft, NTND, no rebound or guarding. Back: nontender, normal inspection and ROM MSK: no edema, DAVIS x4, ROM intact. No clubbing or cyanosis. normal bulk and tone. Extremities: no calf tenderness Neuro: alert, oriented appropriately; no focal neurologic deficits Psych: Calm and cooperative Skin: warm and well perfused, cap refill <2 sec, normal color, no rash or skin discoloration. 03/06/19 07:51 Past History - Past Medical History Allergies/Adverse Reactions: Allergies Allergy/AdvReac Type Severity Reaction Status Date / Time No Known Allergies Allergy Verified 03/06/19 07:07 Home Medications: Ambulatory Orders Albuterol Sulfate Inhaler - [Ventolin HFA Inhaler -] 2 inh PO Q4H PRN 10/02/16 Asthma: Yes COPD: No - Psycho Social/Smoking Cessation Hx Smoking History: Never smoked Have you smoked in the past 12 months: No Cigars Per Day: 0 Hx Alcohol Use: No Drug/Substance Use Hx: No Substance Use Type: None Hx Substance Use Treatment: No *Physical Exam - Vital Signs Last Vital Signs Temp Pulse Resp BP Pulse Ox 98.1 F 78 16 141/87 99 03/06/19 07:08 03/06/19 07:08 03/06/19 07:08 03/06/19 07:08 03/06/19 07:08 ED Treatment Course - RADIOLOGY Radiology Studies Ordered: Category Date Time Status CHEST PA & LAT [RAD] Stat Radiology 03/06/19 07:24 Ordered Radiograph Interpretation: 03/06/19 07:58 Interpreted by ED Physician: CXR (2 view): no acute abnormality: no infiltrates , bones appear intact and structures normal alignment, cardiac silhouette within normal limits. no free air under diaphragm, no pneumothorax. Medical Decision Making - Medical Decision Making 03/06/19 07:55 Vital Signs Temp Pulse Resp BP Pulse Ox 98.1 F 78 16 141/87 99 03/06/19 07:08 03/06/19 07:08 03/06/19 07:08 03/06/19 07:08 03/06/19 07:08 Differential diagnosis includes asthma, viral syndrome, upper respiratory infection, bronchitis, pleurisy. Vital signs reviewed, afebrile normotensive and normal saturations on room air, breathing comfortably speaking full sentences. Lungs are clear to auscultation. We will give the patient albuterol and ipratropium nebs x1, as patient does admit to improvement with her albuterol administration. Patient most likely has a chronic cough from a bronchitis/viral syndrome that initially started the process. Doubt any severe bacterial infection/systemic infection, doubt PE or cardiac. Symptoms are most consistent with residual viral syndrome symptoms. no antibiotics indicated, side effects outweigh benefits and pt without systemic features or findings to suggest serious bacterial infection. Patient instructed to continue with oral hydration, warm lemon tea, zuhair, honey for soothing effects of throat, salt water gargles, adequate hydration and appropriate analgesia. Can continue to use her albuterol inhaler every 4-6 hours as needed for the cough as this could be a variant of her asthma instruction on minimizing triggers such as vaping and smoke fumes from second hand smoke Pt to be discharged in stable condition. Patient and family made aware of clinical impression, treatment recommendations and disposition plan, return precautions discussed (including but not limited to new or persistent/worsening symptoms, pain, fevers, or signs of infection, chest pain, respiratory distress , inability to tolerate oral intake, dehydration, syncope, or neurologic changes ). Follow up with PMD as recommended, follow up information provided, take medications as instructed for duration of time. continue with supportive care, avoid triggers and precipitants. All questions answered to patient's satisfaction and expressed understanding and comfort with this. At the time of discharge, the patient is alert, clinically improved, tolerating po and verbalizes understanding of instructions, satisfied with the care received and felt comfortable with the plan. Patient does not suffer from an acute life- threatening medical condition at this time and is safe for outpatient follow- up. 03/06/19 07:57 03/06/19 08:50 Discharge - Discharge Information Problems reviewed: Yes Clinical Impression/Diagnosis: Bronchitis Condition: Improved Disposition: HOME - Admission No - Follow up/Referral Referrals: [facility] [place] [Provider Group] [facility] [Provider Group] - Patient Discharge Instructions Patient Printed Discharge Instructions: DI for Acute Bronchitis, DI for Viral Upper Respiratory Infection -- Adult, DI for Common Cold Additional Instructions: salt water gargles, 1-2 spoonful of honey and warm lemon tea is appropriate as well for soothing qualities for sore throat/cough. minimize spread of infection given contagious nature, and cover your mouth and wash your hands adequately with soap and water. Stay well hydrated and rest. Cool air - walk around outdoors in the evening. May also try hot shower steam. This can alleviate the congestion and cough. avoid triggers such as second hand smoke and vaping products/fumes May use the albuterol inhaler every 4-6 hours as needed for cough and breathing to clear up your airways. Return precautions include respiratory distress, difficulty breathing, cyanosis , chest pain, lethargy, confusion, dehydration, high fevers or pain. - Post Discharge Activity
[2019-03-06] MEDS ORDERED: ALBUTEROL SO4 2.5/IPRATROPIUM 0.5 INH SOL 3 ML VIAL.NEB. NEB ONE (07:37)
[2019-03-06] MEDS ORDERED: IBUPROFEN 600 MG TABLET (FP) PO ONE ×2 (07:50→08:11)
[2019-03-06 08:54] VITALS: BP 124/76; PULSE 72
== END 2019-03-06 08:54 | disposition home or self-care (01) ==
LOC: JER 07:01
PROC: 3E0F7GC Introduction of Other Therapeutic Substance into Respiratory Tract, Via Natural or Artificial Opening (ICD-10-PCS; principal; 2019-03-06)
DX: J20.9 Acute bronchitis, unspecified (principal); J45.909 Unspecified asthma, uncomplicated; K21.9 Gastro-esophageal reflux disease without esophagitis; E73.9 Lactose intolerance, unspecified
CPT/HCPCS: 71046-TC-FY; 94640; 99281-25

== ENCOUNTER 2019-03-30 08:21 | Emergency (ER) | payer OTHER ==
[2019-03-30 08:37] VITALS: BP 119/82; PULSE 105; TEMP 99.4; BMI 34.3
[2019-03-30] MEDS ORDERED: IBUPROFEN 600 MG TABLET (FP) PO ONE ×2 (08:42→09:18)
[2019-03-30] MEDS ORDERED: ALBUTEROL SO4 2.5/IPRATROPIUM 0.5 INH SOL 3 ML VIAL.NEB. NEB ONE ×2 (09:00→09:18)
--- NOTE | 2019-03-30 09:00 | PDOC ---
History of Present Illness - General Chief Complaint: Cold Symptoms Stated Complaint: COUGH W/BARRIGA AND NECK PAIN Time Seen by Provider: 03/30/19 08:42 - History of Present Illness Initial Comments: 03/30/19 08:45 CHIEF COMPLAINT: cough, body aches HISTORY OF PRESENT ILLNESS: 33 yo F presents to [facility] with cough, malaise, and body aches since yesterday. Patient states she "doesn't feel well" and that she feels nauseous but denies any vomiting or diarrhea. Patient feels " hot and cold" but is unsure if she has had a fever. No recent travel or sick contacts. PAST MEDICAL HISTORY: Denies past medical history FAMILY HISTORY: Denies SOCIAL HISTORY: Denies tobacco, alcohol, illicit drug use. SURGICAL HISTORY: Denies ALLERGIES: No known drug allergies REVIEW OF SYSTEMS General/Constitutional: Chills, subjective fever. Generalized malaise. HEENT: Denies change in vision. Denies ear pain or discharge. Denies sore throat. Cardiovascular: Denies chest pain or shortness of breath. Respiratory: Cough. Denies wheezing, or hemoptysis. Gastrointestinal: Denies nausea, vomiting, diarrhea or constipation. Denies rectal bleeding. Genitourinary: Denies dysuria, frequency, or change in urination. Musculoskeletal: Denies joint or muscle swelling or pain. Denies neck or back pain. Skin and breasts: Denies rash or easy bruising. Neurologic: Denies headache, vertigo, loss of consciousness, or loss of sensation. Psychiatric: Denies depression or anxiety. PHYSICAL EXAM General Appearance: Well-appearing, appropriately dressed. No apparent distress , no intoxication. HEENT: EOMI, PERRLA, normal ENT inspection, normal voice, TMs normal, pharynx normal. No conjunctival pallor. No photophobia, scleral icterus. Neck: Full ROM to neck, negative Bradzinski's/Kernig's. Supple. Trachea midline. No tenderness, rigidity, carotid bruit, stridor, lymphadenopathy, santiago thyromegaly. Respiratory/Chest: Dry cough. Lungs CTAB. No shortness of breath, chest tenderness, respiratory distress, accessory muscle use. No crackles, rales, rhonchi, stridor, wheezing, dullness Cardiovascular: RRR. S1, S2. No JVD, murmur, bradycardia, tachycardia. Vascular Pulses: Dorsalis-Pedis (R): 2+, Dorsalis-Pedis (L): 2+ Gastrointestinal/Abdominal: Normal bowel sounds. Abdomen soft, non-distended. No tenderness or rebound tenderness. No organomegaly, pulsatile mass, guarding , hernia, hepatomegaly, splenomegaly. Lymphatic: No adenopathy, tenderness. Musculoskeletal/Extremities: Normal inspection. FROM of all extremities, normal capillary refill. Pelvis Stable. No CVA tenderness. No tenderness to extremities, pedal edema, swelling, erythema or deformity. Integumentary: Appropriate color, dry, warm. No cyanosis, erythema, jaundice or rash Neurologic: motor bus driver II-XII intact. Fully oriented, alert. Appropriate mood/affect. Motor strength 5/5. No appreciable EOM palsy, facial droop or sensory deficit. Past History - Past Medical History Allergies/Adverse Reactions: Allergies Allergy/AdvReac Type Severity Reaction Status Date / Time No Known Allergies Allergy Verified 03/06/19 07:07 Home Medications: Ambulatory Orders Albuterol Sulfate Inhaler - [Ventolin HFA Inhaler -] 2 inh PO Q4H PRN 10/02/16 Benzonatate 100 mg PO TID #21 capsule 03/30/19 Oseltamivir Phosphate [Tamiflu] 75 mg PO BID #10 capsule 03/30/19 Pseudoephedrine HCl [Pseudoephedrine ER] 120 mg PO BID #14 tablet.er 03/30/19 predniSONE [Deltasone -] 20 mg PO DAILY #3 tablet 03/30/19 Asthma: Yes COPD: No - Immunization History Immunization Up to Date: No - Psycho Social/Smoking Cessation Hx Smoking History: Never smoked Have you smoked in the past 12 months: No Cigars Per Day: 0 Information on smoking cessation initiated: No Hx Alcohol Use: No Drug/Substance Use Hx: No Substance Use Type: None Hx Substance Use Treatment: No *Physical Exam - Vital Signs Last Vital Signs Temp Pulse Resp BP Pulse Ox 99.4 F 105 H 18 119/82 97 03/30/19 08:34 03/30/19 08:34 03/30/19 08:34 03/30/19 08:34 03/30/19 08:34 Medical Decision Making - Medical Decision Making 03/30/19 09:02 33 yo F presents to [facility] with cough, malaise, and body aches since yesterday. -duoneb -XR -motrin -flu swab Discharge - Discharge Information Problems reviewed: Yes Clinical Impression/Diagnosis: Influenza A Condition: Stable - Admission No - Additional Discharge Information Prescriptions: Benzonatate 100 mg PO TID #21 capsule Oseltamivir Phosphate [Tamiflu] 75 mg PO BID #10 capsule predniSONE [Deltasone -] 20 mg PO DAILY #3 tablet Pseudoephedrine HCl [Pseudoephedrine ER] 120 mg PO BID #14 tablet.er - Follow up/Referral Referrals: Phil Vazquez MD [Staff Physician] - - Patient Discharge Instructions Patient Printed Discharge Instructions: DI for Influenza -- Adult - Post Discharge Activity Work/Back to School Note: Back to Work
[2019-03-30] MEDS ORDERED: ONDANSETRON *ODT* 4 MG TABLET SL ONE (09:03)
[2019-03-30] MEDS ORDERED: ONDANSETRON *ODT* 4 MG TABLET ONE (09:18)
== END 2019-03-30 10:37 | disposition home or self-care (01) ==
LOC: JERFT 08:21
PROC: 3E0F7GC Introduction of Other Therapeutic Substance into Respiratory Tract, Via Natural or Artificial Opening (ICD-10-PCS; principal; 2019-03-30)
DX: J09.X2 Influenza due to identified novel influenza A virus with other respiratory manifestations (principal); J45.909 Unspecified asthma, uncomplicated
CPT/HCPCS: 71046-TC-FY; 87804; 99281-25; Q0162

== ENCOUNTER 2019-11-07 01:02 | Emergency (ER) | payer OTHER ==
[2019-11-07 01:10] VITALS: BMI 34.3
[2019-11-07 01:56] LABS: BASO % 0.7 % (0-2.0); EOS % 2.7 % (0-4.5); HEMOGLOBIN 11.7 GM/dL (10.7-15.3); LYMPH % 42.6 % (8-40); MCH 27.2 pg (25.7-33.7); MCHC 32.6 g/dl (32.0-36.0); MEAN CELL VOLUME 83.3 fl (80-96); MEAN PLT VOLUME 8.2 fl (7.5-11.1); MONO % 9.6 % (3.8-10.2); NEUT % 44.4 % (42.8-82.8); PLATELET COUNT 268 K/MM3 (134-434); RBC 4.32 M/mm3 (3.60-5.2); WHITE BLOOD COUNT 8.1 K/mm3 (4.0-10.0)
[2019-11-07 02:15] LABS: ALK PHOS 76 U/L (45-117); ANION GAP 8 MMOL/L (8-16); BILIRUBIN,TOTAL 0.3 mg/dL (0.2-1); BLOOD UREA NITROGEN 15.5 mg/dL (7-18); CALCIUM 8.5 mg/dL (8.5-10.1); CHLORIDE 110 mmol/L (98-107); CO2 23 mmol/L (21-32); GLUCOSE,RANDOM 96 mg/dL (74-106); POTASSIUM 3.7 mmol/L (3.5-5.1); SGOT/AST 18 U/L (15-37); SGPT/ALT 20 U/L (13-61); SODIUM 141 mmol/L (136-145); TOT PROT 6.6 g/dl (6.4-8.2)
[2019-11-07 02:33] LABS: ALBUMIN 3.5 g/dl (3.4-5.0)
--- NOTE | 2019-11-07 02:45 | PDOC ---
History of Present Illness - General Chief Complaint: Chest Pain Stated Complaint: CHEST PAIN Time Seen by Provider: 11/07/19 01:55 Past History - Medical History Allergies/Adverse Reactions: Allergies Allergy/AdvReac Type Severity Reaction Status Date / Time No Known Allergies Allergy Verified 11/07/19 01:04 Home Medications: Ambulatory Orders Albuterol Sulfate Inhaler - [Ventolin HFA Inhaler -] 2 inh PO Q4H PRN 10/02/16 Benzonatate 100 mg PO TID #21 capsule 03/30/19 Oseltamivir Phosphate [Tamiflu] 75 mg PO BID #10 capsule 03/30/19 Pseudoephedrine HCl [Pseudoephedrine ER] 120 mg PO BID #14 tablet.er 03/30/19 predniSONE [Deltasone -] 20 mg PO DAILY #3 tablet 03/30/19 Albuterol Sulfate Inhaler - [Ventolin HFA Inhaler -] 1 - 2 inh PO Q4H #1 inhaler 07/30/19 Benzonatate [Tessalon Pearls -] 100 mg PO TID #21 capsule 07/30/19 Asthma: Yes COPD: No - Immunization History Immunization Up to Date: No - Psycho-Social/Smoking History Smoking History: Never smoked Have you smoked in the past 12 months: No Cigars Per Day: 0 Information on smoking cessation initiated: No - Substance Abuse Hx (Audit-C & DAST Scrn) How often the patient has a drink containing alcohol: Never Score: In Men: 4 or > Positive; In Women: 3 or > Positive: 0 Screen Result (Pos requires Nsg. Audit-10AR): Negative In the last yr the pt used illegal drug/Rx for NonMed reason: No Score: Yes response is considered Positive: 0 Screen Result (Positive result requires Nsg. DAST-10): Negative *Physical Exam - Vital Signs Last Vital Signs Temp Pulse Resp BP Pulse Ox 98.7 F 86 20 127/65 100 11/07/19 01:08 11/07/19 01:08 11/07/19 01:08 11/07/19 01:08 11/07/19 01:08 Heart Score/ECG Review - ECG Intrepretation Rhythm: Regular Rhythm - [place]: Normal - P and MD Prominent R with upright T in V1 (true posterior AR): No Delta Wave(s) Present: No WPW: No - QRS Poor R Wave Progression: No Q Wave Present: No - ST and T Early Repolarization: No Non Specific ST-T Wave changes: No Flattened T Waves: No Prolonged Q-T Interval: No - ECG Impressions Normal ECG: Yes Non-specific ST Elevation: No Ischemic Changes: No Bradycardia: No Torsades sowmya Pointes: No WPW: No ED Treatment Course - LABORATORY CBC & Chemistry Diagram: 11/07/19 01:20 11/07/19 01:20 - ADDITIONAL ORDERS Additional order review: Laboratory Results 11/07/19 01:20 Sodium 141 Potassium 3.7 Chloride 110 H Carbon Dioxide 23 Anion Gap 8 BUN 15.5 Creatinine 1.0 Est GFR (CKD-EPI)AfAm 86.33 Est GFR (CKD-EPI)NonAf 74.49 Random Glucose 96 Calcium 8.5 Total Bilirubin 0.3 AST 18 ALT 20 Alkaline Phosphatase 76 Creatine Kinase 124 Troponin I < 0.02 Total Protein 6.6 Albumin 3.5 11/07/19 01:20 RBC 4.32 MCV 83.3 MCHC 32.6 RDW 16.0 H MPV 8.2 Neutrophils % 44.4 D Lymphocytes % 42.6 H D Monocytes % 9.6 Eosinophils % 2.7 Basophils % 0.7 Discharge - Discharge Information Problems reviewed: Yes Clinical Impression/Diagnosis: Musculoskeletal chest pain Condition: Stable Disposition: HOME - Admission No - Follow up/Referral - Patient Discharge Instructions Patient Printed Discharge Instructions: DI for Atypical Chest Pain, DI for Musculoskeletal Pain - Post Discharge Activity
[2019-11-07] MEDS ORDERED: IBUPROFEN 600 MG TABLET (FP) PO ONE (03:26)
[2019-11-07 04:12] VITALS: BP 118/67; PULSE 71; TEMP 97.3
--- NOTE | 2019-11-08 10:03 | EKG ---
Test Reason : Blood Pressure : / mmHG Vent. Rate : 087 BPM Atrial Rate : 087 BPM P-R Int : 166 ms QRS Dur : 086 ms QT Int : 360 ms P-R-T Axes : 050 063 041 degrees QTc Int : 433 ms NORMAL SINUS RHYTHM NORMAL ECG WHEN COMPARED WITH ECG OF 02-AUG-2017 23:20, T WAVE AMPLITUDE HAS INCREASED IN ANTERIOR LEADS Confirmed by Rosalie Avalos ([id number]) on 11/08/2019 10:03:22 AM Referred By: Confirmed By:Rosalie Avalos
== END 2019-11-07 04:05 | disposition home or self-care (01) ==
LOC: JER 01:02
DX: R07.89 Other chest pain (principal)
CPT/HCPCS: 36415; 71046-TC-FY; 80053; 82550; 84484; 85025; 93005; 93010; 99285-25

== ENCOUNTER 2020-05-25 21:28 | Emergency (ER) | payer OTHER ==
[2020-05-25 21:41] VITALS: BP 136/97; PULSE 78; TEMP 98.2; BMI 35.3
[2020-05-25 22:40] LABS: BASO % 0.9 % (0-2.0); EOS % 1.7 % (0-4.5); HEMATOCRIT 38.8 % (32.4-45.2); LYMPH % 34.2 % (8-40); MCH 27.6 pg (25.7-33.7); MCHC 33.4 g/dl (32.0-36.0); MEAN CELL VOLUME 82.7 fl (80-96); MEAN PLT VOLUME 8.4 fl (7.5-11.1); MONO % 6.7 % (3.8-10.2); NEUT % 56.5 % (42.8-82.8); PLATELET COUNT 296 K/MM3 (134-434); RBC 4.69 M/mm3 (3.60-5.2); RDW 14.8 % (11.6-15.6); WHITE BLOOD COUNT 10.5 K/mm3 (4.0-10.0)
[2020-05-25 23:25] LABS: CHLORIDE 104 mmol/L (98-107); POTASSIUM 3.7 mmol/L (3.5-5.1); SODIUM 138 mmol/L (136-145)
[2020-05-25 23:27] LABS: CALCIUM 8.5 mg/dL (8.5-10.1)
[2020-05-25 23:28] LABS: ALBUMIN 3.9 g/dl (3.4-5.0); ANION GAP 7 MMOL/L (8-16); BLOOD UREA NITROGEN 13.8 mg/dL (7-18); CO2 27 mmol/L (21-32); GLUCOSE,RANDOM 122 mg/dL (74-106)
[2020-05-25 23:31] LABS: CREATININE 1.1 mg/dL (0.55-1.3); SGOT/AST 19 U/L (15-37); SGPT/ALT 29 U/L (13-61)
[2020-05-25 23:32] LABS: BILIRUBIN,TOTAL 0.5 mg/dL (0.2-1)
[2020-05-25 23:33] LABS: TOT PROT 7.6 g/dl (6.4-8.2)
[2020-05-25 23:34] LABS: ALK PHOS 90 U/L (45-117)
== END 2020-05-25 23:49 | disposition home or self-care (01) ==
LOC: JER 21:28
DX: R07.9 Chest pain, unspecified (principal)
CPT/HCPCS: 36415; 71046-TC-FY; 80053; 82550; 84484; 85025; 85379; 93005; 93010; 99285-25

== ENCOUNTER 2021-04-26 10:33 | Emergency (ER) | payer OTHER ==
[2021-04-26 10:48] VITALS: BP 110/74; PULSE 85; TEMP 98; BMI 35.2
[2021-04-26] MEDS ORDERED: IBUPROFEN 600 MG TABLET (FP) PO ONE (11:15)
[2021-04-26 12:19] LABS: BASO % 0.5 % (0-2.0); EOS % 2.2 % (0-4.5); HEMATOCRIT 40.9 % (32.4-45.2); HEMOGLOBIN 12.9 GM/dL (10.7-15.3); LYMPH % 38.4 % (8-40); MCH 26.6 pg (25.7-33.7); MCHC 31.6 g/dl (32.0-36.0); MEAN PLT VOLUME 8.6 fl (7.5-11.1); MONO % 7.2 % (3.8-10.2); NEUT % 51.7 % (42.8-82.8); PLATELET COUNT 273 10^3/uL (134-434); RBC 4.87 M/mm3 (3.60-5.2); RDW 14.7 % (11.6-15.6); WHITE BLOOD COUNT 7.5 K/mm3 (4.0-10.0)
[2021-04-26 12:45] LABS: CHLORIDE 109 mmol/L (98-107); SODIUM 140 mmol/L (136-145)
[2021-04-26 12:48] LABS: CALCIUM 8.9 mg/dL (8.5-10.1)
[2021-04-26 12:49] LABS: ALBUMIN 3.9 g/dl (3.4-5.0); ANION GAP 4 MMOL/L (8-16); BLOOD UREA NITROGEN 8.7 mg/dL (7-18); CO2 27 mmol/L (21-32); GLUCOSE,RANDOM 82 mg/dL (74-106)
[2021-04-26 12:52] LABS: CREATININE 0.9 mg/dL (0.55-1.3); SGOT/AST 14 U/L (15-37); SGPT/ALT 24 U/L (13-61)
[2021-04-26 12:53] LABS: BILIRUBIN,TOTAL 0.4 mg/dL (0.2-1)
[2021-04-26 12:54] LABS: TOT PROT 7.2 g/dl (6.4-8.2)
[2021-04-26 12:55] LABS: ALK PHOS 75 U/L (45-117)
== END 2021-04-26 13:24 | disposition home or self-care (01) ==
LOC: JER 10:33
DX: R07.89 Other chest pain (principal); M79.10 Myalgia, unspecified site
CPT/HCPCS: 36415; 71046-TC-FY; 80053; 84484; 85025; 93005; 93010; 99285-25